=== PATIENT | male | born 1945 | race Caucasian/White ===

== ENCOUNTER → 2018-04-24 | Outpatient (CLI) | payer OTHER ==
--- NOTE | 2018-04-24 13:27 | DIAGNOSTIC IMAGING REPORT ---
RIGHT SHOULDER MRI HISTORY: Right SHOULDER PAIN TECHNIQUE: Multiplanar multisequence MRI of the right shoulder was performed without contrast. COMPARISON STUDY: None. FINDINGS: AC joint: Severe AC joint arthrosis demonstrated by joint space narrowing and large marginal osteophytes. There is mild surrounding soft tissue edema. Rotator cuff: Large full-thickness tear involving the entire supraspinatus tendon which demonstrates up to 2.5 cm of retraction. The teres minor tendon is intact. Tiny linear focal full-thickness tear at the distal subscapularis tendon with associated calcification. This is consistent with superimposed calcific tendinitis. There are also a few tiny linear full-thickness tears of the distal infraspinatus tendon no associated retraction. Mild fatty atrophy of the supraspinatus muscle. Labrum: Intact Biceps tendon: Thickening within the proximal long head of the biceps tendon and increased T2 signal consistent with a tendinopathy. Bones: No fracture or dislocation. Small marginal osteophytes at the humeral head. Cartilage: Mild to moderate cartilage space narrowing within the humeral head. The glenoid cartilage appears intact. Miscellaneous: Small joint effusion. IMPRESSION: 1. Large full-thickness tear at the supraspinatus tendon with retraction and mild muscle atrophy. 2. A few tiny linear full-thickness tears within the distal infraspinatus and distal subscapularis tendons. 3. Calcific tendinitis of the distal subscapularis tendon. 4. Biceps tendinopathy. 5. 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 6. Small joint effusion. Electronically signed by: Julius Blunt M.D. 04/24/2018 1:25 PM Dictated Date/Time: 04/24/2018 1:17 PM
== END | disposition home or self-care (01) ==
LOC: C.MRIBC 11:50
PROVIDERS: ATTEND Orthopaedic Surgery
DX: M25.511 Pain in right shoulder (principal)